=== PATIENT | female | born 1940 | race Two or more races ===

== ENCOUNTER 2020-12-03 09:54 | Day surgery (SDC) | payer OTHER ==
[~2020-12-03 09:54] MED LIST: ATORVASTATIN CA40 MG PO; LEVO-T75 MCG PO; ZESTRIL40 M1 PO
== END 2020-12-03 18:25 | disposition home or self-care (01) ==
LOC: CIR.AMB 09:54
PROVIDERS: ATTEND Specialist
DX: N87.1 Moderate cervical dysplasia (principal); Z20.822 Contact with and (suspected) exposure to COVID-19